=== PATIENT | female | born 1995 | race Caucasian/White ===

== ENCOUNTER 2018-05-25 12:53 | Emergency (ER) | payer OTHER ==
[~2018-05-25] VITALS: Ht 172.7 cm; Wt 129.3 kg
[2018-05-25] MEDS ORDERED: VENTOLIN HFA 1818 GM INH (13:07)
[2018-05-25] MEDS ORDERED: ADDERALL 30 MG30 MG PO (13:08)
[2018-05-25] MEDS ORDERED: IBUPROFEN 800800 M1 PO (14:25)
[2018-05-25 14:36] VITALS: BP 110/70
== END 2018-05-25 14:38 | disposition home or self-care (01) ==
LOC: M.ERS 12:53
DX: S93.492A Sprain of other ligament of left ankle, initial encounter (principal); S60.012A Contusion of left thumb without damage to nail, initial encounter; J45.909 Unspecified asthma, uncomplicated; F98.8 Other specified behavioral and emotional disorders with onset usually occurring in childhood and adolescence; W18.39XA Other fall on same level, initial encounter; Y93.89 Activity, other specified; Y92.89 Other specified places as the place of occurrence of the external cause; Y99.8 Other external cause status